=== PATIENT | female | born 1975 | race Caucasian/White ===

== ENCOUNTER 2023-03-06 19:01 | Emergency (ER) | payer OTHER, SELFPAY ==
[2023-03-06 19:41] VITALS: BP 173/80; PULSE 99; RESP 18; TEMP 36.8; O2SAT 99; BMI 37.4
--- NOTE | 2023-03-06 19:50 | ED.FEMALEGU ---
HPI - Female Genitourinary General Chief complaint: Urogenital-Female Stated complaint: large clots- menstrual Time Seen by Provider: 03/06/23 23:11 Source: patient Mode of arrival: ambulatory Limitations: no limitations History of Present Illness HPI Narrative: But otherwise healthy been having heavy menstrual period For last 2 months prior to that patient has regular periods Jorge Luis she had vaginal bleeding for 40 days and again is started on 02/25 changing pads 3-4 /hour patient not on any hormone Related Data Previous Rx's Medication Instructions Recorded ferrous sulfate 325 mg (65 mg 325 mg PO DAILY #30 tabs 03/07/23 iron) tablet Allergies Allergy/AdvReac Type Severity Reaction Status Date / Time No Known Allergies Allergy Verified 03/06/23 19:44 [facility] Social History Social History Alcohol intake: former Smoked in Last 30 Days: Yes Use of substances other than those prescribed or required for medical reasons: No Advance Directives: No Advance Directives Information Provided: Yes Patient : No Physical Exam Vital Signs: Vital Signs: Last Vital Signs Temp 99 F 03/07/23 00:24 Pulse 83 03/07/23 00:24 Resp 16 03/07/23 00:24 BP 142/77 H 03/07/23 00:24 Pulse Ox 100 03/07/23 00:24 O2 Del Method Room Air 03/07/23 00:24 BMI result Body Mass Index 37.4 Appearance: Alert. Oriented X3. No acute distress. Eyes: PERRLA, No Nystagmus ENT: Pharynx normal. Oral Mucosa moist Neck: Normal inspection. Neck supple. CVS: Normal heart rate and rhythm. Pulses normal. Respiratory: No respiratory distress. Equal air entry bilateral, no wheezing/rales/rhonchi Abdomen: Soft and nontender. Bowel sounds are present, no mass palpable, no CVA tenderness Skin: Skin warm and dry. Normal skin color. Normal skin turgor. Extremities: No lower extremity edema. No calf tenderness Neuro: Oriented X 3. No motor deficit. No sensory deficit.No cerebellar signs , cranial nerves II-XII intact Course Course Course Narrative: RME: 47 yo female w/no significant PMHx presenting to the ED c/o vaginal bleeding with clots filling about 4-5 pads an hour x today. Reports vaginal bleeding x2 weeks. Denies taking anticoagulation. LMP last month Labs, UA ordered Full HPI, ROS and PE to be performed by primary ED provider. Medical Decision Making Medical Decision Making [facility] Narrative: Patient with dysfunctional uterine bleed ultrasound negative for acute H&H stable advised to follow up with regional business development manager for further management vitals are stable Lab Data [facility] Lab Attestation statement: I reviewed the patient's lab results. 03/06/23 20:49 03/06/23 20:49 Labs: Lab Results 03/06/23 Range/Units 20:49 WBC 13.5 H (4.8-10.8) X10*3/uL RBC 4.18 L (4.20-5.50) X10*6/uL Hgb 13.1 (12.0-16.0) g/dl Hct 37.5 (37.0-47.0) % MCV 89.7 (80.0-98.0) fL MCH 31.3 (27.0-33.0) pg MCHC 34.9 (31.0-35.0) g/dl RDW 12.3 (11.0-16.0) % Plt Count 266 (160-400) X10*3/uL MPV 10.4 (9.4-12.3) fL Immature Gran % (Auto) 0.4 (0.0-0.4) % Neut % (Auto) 70.3 (45-73) % Lymph % (Auto) 21.3 (20-40) % Cotton % (Auto) 4.9 (2-11) % Eos % (Auto) 2.5 (0-4) % Baso % (Auto) 0.6 (0-2) % Lymph # (Auto) 2.9 (1.2-4.9) X10*3/uL Cotton # (Auto) 0.7 (0.1-1.2) X10*3/uL Eos # (Auto) 0.3 (0.0-0.4) X10*3/uL Baso # (Auto) 0.1 (0.0-0.2) X10*3/uL Abs Immat Gran (auto) 0.05 H (0.00-0.03) X10*3/uL Absolute Neuts (auto) 9.5 H (2.0-8.3) x10*3/uL Absolute Nucleated RBC 0.000 (0.0-0.012) X10*3/uL Nucleated RBC % (auto) 0.0 (0.0-0.2) /100WBC PT 11.2 (11.1-13.3) SEC INR 0.9 (0.9-1.1) Sodium 139 (135-145) mmol/L Potassium 3.8 (3.3-5.1) mmol/L Chloride 105 (96-108) mmol/L Carbon Dioxide 29 (22-29) mmol/L Anion Gap 9 L (12-20) BUN 13 (9-16) mg/dL Creatinine 0.83 (0.5-1.4) mg/dL Estim Creat Clear Calc 101.3 Estimated GFR > 60 Random Glucose 142 H (60-115) mg/dL Calcium 9.3 (8.4-10.2) mg/dL Magnesium 2.1 (1.6-2.6) mg/dL Total Bilirubin 0.3 (0.0-1.0) mg/dL Direct Bilirubin 0.1 (0.0-0.5) mg/dL AST 52 H (5-31) U/L ALT 97 H (0-31) U/L Alkaline Phosphatase 72 (39-117) U/L Total Protein 7.3 (6.5-8.0) g/dL Albumin 3.9 (3.5-5.0) g/dL Lipase 20 (8-78) U/L Beta HCG, Quant < 2 mIU/mL Independent Interpretation I performed an independent interpretation of an: Ultrasound Radiology Impression Discussion of test interpretation with radiology: I have reviewed the radiologist's reading. Discharge Plan Discharge Clinical Impression: DUB (dysfunctional uterine bleeding) Patient Disposition: Home, Self-Care Instructions: Dysfunctional Uterine Bleeding (ED) Additional Instructions: Follow-up with regional business development manager as scheduled Take iron tablets daily Prescriptions: New ferrous sulfate 325 mg (65 mg iron) tablet 325 mg PO DAILY Qty: 30 0RF Interventions: ED Discharge Assessment Last Done: 03/07/23 01:01 Discharge Date/Time: 03/07/23 01:02
[2023-03-07 00:24] VITALS: BP 142/77; PULSE 83; RESP 16; TEMP 37.2; O2SAT 100
== END 2023-03-07 01:02 | disposition home or self-care (01) ==
PROVIDERS: Emergency Provider Internal Medicine
DX: N93.8 Other specified abnormal uterine and vaginal bleeding (principal)
CPT/HCPCS: 36415; 76830; 76856; 80048; 80076; 83690; 83735; 84702; 85025; 85610; 99284

== ENCOUNTER 2023-08-30 12:53 | Emergency (ER) | payer OTHER, SELFPAY ==
[2023-08-30 12:54] VITALS: BP 148/86; PULSE 93; RESP 18; TEMP 36.7; O2SAT 97; BMI 40.7
--- NOTE | 2023-08-30 12:58 | ED_ITS ---
HPI - General Adult General Chief complaint: General Medical Stated complaint: lump in breast Time Seen by Provider: 08/30/23 14:21 Source: patient Mode of arrival: ambulatory Limitations: no limitations History of Present Illness ED Provider: Apryl LOPES narrative: patient is a 47-year-old female who presents to the emergency department for evaluation of a painful lump to the left breast. She reports a few days of noticing mild discomfort. Today while in the shower she noticed that the area was becoming red, increasingly painful, and firm to the touch. She reports that she had a recent mammogram which was normal, denies any history of abnormal mammogram or family history of breast cancer. She denies possibility for , not currently or recently lactating/breast-feeding. She denies nipple discharge, inversion, fevers, chills, recent unintentional weight loss. Related Data Previous Rx's ?Medication ?Instructions ?Recorded ferrous sulfate 325 mg (65 mg 325 mg PO DAILY #30 tabs 03/07/23 iron) tablet amoxicillin 875 mg-potassium 1 tab PO BID #14 tabs 08/30/23 clavulanate 125 mg tablet Allergies Allergy/AdvReac Type Severity Reaction Status Date / Time bee pollen [bee stings] Allergy Anaphylaxis Verified 08/30/23 12:58 Review of Systems Review of Systems: Yes all other systems are reviewed and are negative PMFSH Past Medical History Attestation statement: The following information was validated with the patient. Source: old records reviewed Social History Social History Alcohol intake: former Advance Directives: No Advance Directives Information Provided: No Do you have a plan to hurt others: No Plan Physical Exam ED Vital Signs: Vital Signs - 24 hr 08/30/23 12:54 08/30/23 14:42 Temperature 98.1 F 98.3 F Pulse Rate 93 76 Respiratory Rate 18 19 Blood Pressure 148/86 H 137/52 L Pulse Oximetry 97 99 Oxygen Delivery Method Room Air Room Air BMI result Body Mass Index 40.7 Appearance: Alert.?Oriented to person, place and time. No acute distress.?Normal affect. Neck: Normal inspection.? Neck supple.?? CVS: Heart sounds normal. Normal heart rate and rhythm.? Pulses normal.?? Respiratory: No respiratory distress.? Lung sounds clear to auscultation bilaterally?? Abdomen: Soft and non-tender. Normoactive bowel sounds. ? Skin: Skin warm and dry.? Normal skin color.? Breast: performed with front desk person, ED Human Resource Advisor Tarah - erythematous induration of the left breast periareolar region; 10:00 o'clock-06:00 o'clock without obvious abscess, no active nipple drainage, no inversion, no dimpling of the skin. Neuro: Moves all extremities spontaneously. Sensation intact bilaterally. Ambulates with normal steady gait. Course Course Course Narrative: RME performed by Laila Roblero PA-C. Patient is a 47 year old assigned female at presenting to the emergency department with left breast pain. Patient states she has a lump present to her left breast that is new and painful. Detailed physical exam and review of systems are deferred to the mba internship. Patient placed back in the waiting room pending room availability. Medical Decision Making Medical Decision Making [facility] Narrative: patient is a 47-year-old female overall well-appearing nontoxic afebrile presents emergency department for evaluation of a painful lump to the left breast. physical examination concerning for non lactational mastitis of the breast area of palpable erythematous induration marked with skin marker covering 10 o'clock - 6 o'clock. we discussed strict monitoring, strict return precautions including signs of worsening infection. Will send prescription for Augmentin to pharmacy. She reports a mammogram 1 month ago that was normal. At this time does not appear consistent with abscess, duct ectasia, no active nipple discharge or inversion, discussed possibility cancerous process no as aforementioned reassuring with recent normal mammogram. She will follow-up closely with her primary care provider. Differential Diagnosis Differential Diagnoses: The differential diagnosis associated with the presentation includes ( See narrative above) Admission/Observation Consideration of admission/observation: Escalation of care including admission/observation considered External Record Review External record reviewed: Outpatient record Prescription Management I considered prescription management with: Antibiotic Discharge Plan Discharge Clinical Impression: Cellulitis of breast Patient Disposition: Home, Self-Care Instructions: Mastitis (ED) Additional Instructions: Complete the entire course of antibiotics as prescribed. As discussed, during the 1st few days of treatment you may notice slight progression of the redness past the area marked with a skin marker. If there is drastic spread you should have this re-evaluated immediately. If you continued to have progression after a few days despite taking your antibiotics and this should be re-evaluated. Please follow-up closely with your primary care, you may also return to emergency department any new or worsening symptoms or concerns. Prescriptions: New amoxicillin-pot clavulanate 875-125 mg tablet 1 tab PO BID Qty: 14 0RF No Action ferrous sulfate 325 mg (65 mg iron) tablet 325 mg PO DAILY Qty: 30 0RF Referrals: Physician,Unknown J [Primary Care Provider] - Print Language: [place]
[2023-08-30 14:42] VITALS: BP 137/52; PULSE 76; RESP 19; TEMP 36.8; O2SAT 99
[2023-08-30 15:08] VITALS: BP 137/52; PULSE 76; RESP 19; TEMP 36.8; O2SAT 99
== END 2023-08-30 15:11 | disposition home or self-care (01) ==
PROVIDERS: Emergency Provider Emergency Medicine
DX: N61.0 Mastitis without abscess (principal); N63.20 Unspecified lump in the left breast, unspecified quadrant
CPT/HCPCS: 99283